=== PATIENT | male | born 1975 | race Caucasian/White ===

== ENCOUNTER 2018-01-27 11:33 | Emergency (ER) | payer MEDICARE ==
[~2018-01-27] VITALS: Ht 177.8 cm; Wt 125.0 kg
[2018-01-27 11:40] VITALS: Ht 177.8 cm; Wt 125.0 kg
[2018-01-27 12:09] LABS: BASOPHILS 0.5 % (0-2); EOSINOPHILS 1.8 % (0-7); HEMATOCRIT 43.5 % (42.0-54.0); HEMOGLOBIN 15.1 g/dL (13.5-17.5); IMMATURE GRANULOCYTES 0.7 % (0-5); LYMPHOCYTES 41.3 % (15-50); MCH 33.5 pg (26.0-34.0); MCHC 34.7 g/dL (31.0-37.0); MCV 96.5 fL (80.0-100.0); MEAN PLATELET VOLUME 9.6 fL (7.4-10.4); MONOCYTES 10.7 % (2-11); PLATELET COUNT 156 10x3/uL (130-400); RBC 4.51 10x6/uL (4.20-6.10); RDW 13.2 % (11.5-14.5); WBC 5.6 10x3/uL (4.8-10.8)
[2018-01-27 12:35] LABS: ALBUMIN 4.3 g/dL (3.4-5.0); CALC OSMOLALITY 274 mosm/kg (275-300); CALCIUM 9.5 mg/dL (8.5-10.1); CARBON DIOXIDE 27.8 mmol/L (21.0-32.0); CHLORIDE - SERUM 103 mmol/L (98-107); CREATININE - SERUM 1.1 mg/dL (0.6-1.3); GLUCOSE 104 mg/dL (74-106); POTASSIUM - SERUM 4.3 mmol/L (3.5-5.1); SODIUM 138 mmol/L (136-145); UREA NITROGEN 9 mg/dL (7-18); eGFR NON AFRICAN AMERICAN 79 mL/min (90-120)
[2018-01-27 12:49] LABS: APPEARANCE CLEAR (CLEAR); BILIRUBIN NEGATIVE (NEGATIVE); COLOR YELLOW (YELLOW); GLUCOSE NEGATIVE (NEGATIVE); KETONE NEGATIVE (NEGATIVE); NITRITE NEGATIVE (NEGATIVE); PROTEIN NEGATIVE (NEGATIVE); SPECIFIC GRAVITY 1.005 (1.005-1.020); UROBILINOGEN NORMAL (NORMAL)
[2018-01-27 13:30] LABS: ALKALINE PHOSPHATASE 80 U/L (46-116); ALT (SGPT) 101 U/L (10-68); BILIRUBIN - TOTAL 0.81 mg/dL (0.2-1.3); CKMB 0.4 U/L (0.0-3.6); CREATINE KINASE 76 UL (21-232); PROTEIN - SERUM 7.6 g/dL (6.4-8.2)
[2018-01-27 13:47] LABS: TROPONIN-I < 0.017 ng/mL (0.000-0.060)
[2018-01-27] MEDS ORDERED: ATIVAN0.5 MG PO (15:10)
[2018-01-27 15:30] VITALS: BP 147/98
== END 2018-01-27 15:30 | disposition home or self-care (01) ==
LOC: D.ER 11:33
PROVIDERS: Family Medicine
DX: R20.2 Paresthesia of skin (principal); M54.9 Dorsalgia, unspecified

== ENCOUNTER 2018-09-19 13:44 | Emergency (ER) | payer MEDICARE ==
[~2018-09-19] VITALS: Ht 177.8 cm; Wt 127.3 kg
[~2018-09-19 13:44] MED LIST: ATIVAN0.5 MG PO
[2018-09-19 14:01] VITALS: Ht 177.8 cm; Wt 127.3 kg
[2018-09-19 14:43] LABS: BASOPHILS 0.3 % (0-2); EOSINOPHILS 2.3 % (0-7); HEMATOCRIT 45.7 % (42.0-54.0); HEMOGLOBIN 15.7 g/dL (13.5-17.5); IMMATURE GRANULOCYTES 0.8 % (0-5); LYMPHOCYTES 32.6 % (15-50); MCH 33.3 pg (26.0-34.0); MCHC 34.4 g/dL (31.0-37.0); MEAN PLATELET VOLUME 9.7 fL (7.4-10.4); MONOCYTES 7.4 % (2-11); NEUTROPHILS 56.6 % (40-80); RBC 4.71 10x6/uL (4.20-6.10); WBC 6.6 10x3/uL (4.8-10.8)
[2018-09-19 14:44] LABS: PLATELET COUNT 191 10x3/uL (130-400)
[2018-09-19 15:04] LABS: ALBUMIN 4.2 g/dL (3.4-5.0); ALKALINE PHOSPHATASE 77 U/L (46-116); ALT (SGPT) 79 U/L (10-68); BILIRUBIN - TOTAL 0.66 mg/dL (0.2-1.3); CALC OSMOLALITY 278 mosm/kg (275-300); CALCIUM 8.9 mg/dL (8.5-10.1); CARBON DIOXIDE 25.6 mmol/L (21.0-32.0); CHLORIDE - SERUM 103 mmol/L (98-107); CREATININE - SERUM 0.8 mg/dL (0.6-1.3); GLUCOSE 93 mg/dL (74-106); POTASSIUM - SERUM 4.3 mmol/L (3.5-5.1); PROTEIN - SERUM 7.6 g/dL (6.4-8.2); SODIUM 141 mmol/L (136-145); UREA NITROGEN 7 mg/dL (7-18); eGFR NON AFRICAN AMERICAN > 90 mL/min (90-120)
[2018-09-19 15:25] LABS: CKMB 0.7 U/L (0.0-3.6); CREATINE KINASE 101 UL (21-232); THYROID STIMULATING HORMONE 1.19 uIU/mL (0.36-3.74); TROPONIN-I < 0.017 ng/mL (0.000-0.060)
[2018-09-19] MEDS ORDERED: HYDROXYZINE HCL10 MG PO (16:09)
[2018-09-19 16:39] VITALS: BP 125/68
== END 2018-09-19 16:43 | disposition home or self-care (01) ==
LOC: D.ER 13:44
PROVIDERS: Family Medicine
DX: F41.9 Anxiety disorder, unspecified (principal); R20.2 Paresthesia of skin